=== PATIENT | male | born 1950 ===

== ENCOUNTER 2019-01-15 09:27 | Day surgery (SDC) | payer OTHER ==
[2019-01-15] MEDS ORDERED: LIDOCAINE 2% MDV (20MG/ML) 20ML VIAL IV ONE (09:28)
--- NOTE | 2019-01-16 07:50 | Operative Note ---
OPERATION: Screening COLONOSCOPY with subsequent polypectomy x4. PREOPERATIVE DIAGNOSIS: Colon cancer screening. POSTOPERATIVE DIAGNOSES: 1. Colon polyps. 2. Sigmoid diverticulosis. PREPARATION QUALITY: Good. ESTIMATED BLOOD LOSS: Minimum. SPECIMENS: Ascending colon polyps x2, descending colon polyp x1, rectal polyp x1, possible rectal carcinoid. COMPLICATIONS: None apparent. PROCEDURE: After informed consent was obtained from the patient, the patient was placed in the left lateral decubitus position in the endoscopy suite, sedated and monitored by the department of anesthesia. Digital rectal exam was unremarkable. A well-lubricated [id number] colonoscope was inserted into the rectum and advanced to the cecum. Preparation quality was good. The cecum and cecal bulb were entered several times. The ileocecal valve and appendiceal orifice and cecal base and cecum itself were unremarkable. The ascending colon revealed 2 sessile polyps ranging in size from 5-8 mm each removed with a cold snare and retrieved. The remainder of the ascending colon and transverse colon were unrevealing. The descending colon revealed a 6-7 mm sessile polyp removed with a cold snare. The remainder of the descending colon was unrevealing. The sigmoid colon did demonstrate scattered diverticula of moderate severity. The rectum was unremarkable in forward views but J-turn views demonstrated a submucosal polypoid abnormality which was removed with a polypectomy snare and ERBE Endocut current. There was no bleeding at the site. This very well could have been a rectal carcinoid. The endoscope was straightened, the rectal ampulla deflated, and the endoscope was removed. RECOMMENDATIONS: The patient should resume his medications and diet. He should undergo repeat exam in 1 to 3 to 5 years pending tissue histology. As always, thank you for allowing me to participate in the healthcare of your patients. CC: Alex Phillip, DO [facility]
== END 2019-01-15 11:01 | disposition home or self-care (01) ==
LOC: HOP 09:27
PROVIDERS: ATTEND Internal Medicine Gastroenterology
DX: Z12.11 Encounter for screening for malignant neoplasm of colon (principal); C7A.8 Other malignant neuroendocrine tumors; D12.2 Benign neoplasm of ascending colon; D12.4 Benign neoplasm of descending colon; K57.30 Diverticulosis of large intestine without perforation or abscess without bleeding; I10 Essential (primary) hypertension; E78.00 Pure hypercholesterolemia, unspecified; E03.9 Hypothyroidism, unspecified; K21.9 Gastro-esophageal reflux disease without esophagitis